=== PATIENT | male | born 1965 | race Caucasian/White ===

== ENCOUNTER → 2019-05-12 17:27 | Outpatient (CLI) | payer SELFPAY ==
--- NOTE | 2019-05-12 18:00 | EKG12_ITS ---
Test Reason : PREOP Blood Pressure : / mmHG Vent. Rate : 068 BPM Atrial Rate : 068 BPM P-R Int : 142 ms QRS Dur : 090 ms QT Int : 384 ms P-R-T Axes : 010 034 023 degrees QTc Int : 408 ms Normal sinus rhythm Normal ECG Confirmed by JAMIN LOVE, DIPAK [id number]), clinical editor DMITRY TUTTLE ([id number] on 05/13/2019 8:56:48 AM Referred By: Shayne Muhammad Confirmed By:DIPAK NEVILLE MD
[2019-05-12 19:01] LABS: Anion Gap 4 (5-15); BUN 18 mg/dL (7-18); BUN/Creat Ratio 20.3 RATIO (10-20); Calcium,Total 9.3 mg/dL (8.5-10.1); Chloride 104 mmol/L (98-107); Creatinine, Serum 0.88 mg/dL (0.70-1.30); EST Glomerular Filtration Rate 96 mL/min (>60); Est Glom Filt Rate - Afr Amer 116 mL/min (>60); Glucose 92 mg/dL (74-106); Potassium 4.5 mmol/L (3.5-5.1); Sodium Level 138 mmol/L (136-145)
== END ==
PROVIDERS: Referring Provider Otolaryngology; Visit Provider Otolaryngology
DX: Z01.818 Encounter for other preprocedural examination (principal)
CPT/HCPCS: 80048; 93005